=== PATIENT | male | born 1985 | race Caucasian/White ===

== ENCOUNTER 2018-12-17 17:42 | Emergency (ER) | payer MEDICAID, SELFPAY ==
[2018-12-17 17:43] VITALS: BP 142/89; PULSE 85; RESP 16; TEMP 36.3; O2SAT 97; BMI 22.9
[2018-12-17 17:45] VITALS: TEMP 36.3
--- NOTE | 2018-12-17 17:58 | ED.VISSUMM ---
- ER Visit Summary Date of Service: 12/17/18 Chief Complaint: Skin rash History of Present Illness: The patient is a 33 M presenting secondary to a skin rash. Patient reports that he had a pimple that came up over the weekend that he tried to pop twice but since then it has gotten much larger and has a burning type sensation. He denies any constitutional symptoms. Physical Examination: Physical exam unremarkable except for facial exam that shows a 2 cm area of induration with a overlying yellow scab. No evidence of streaking. Patient has a very small area of induration and erythema just to the right of the patient's nose. Test Results: None indicated Emergency Department Course and Treatment: Patient presented with localized areas of facial cellulitis. Patient will be placed on Bactroban and Doxy. Disposition: Discharge Impression: 1. Facial cellulitis This note was generated with [employer] dictation software. It may contain incorrect words, spelling, and punctuation that were not noted in review of the chart prior to signing ED Disposition - Plan for ED Patient: Disposition: Home or Assisted Living Diagnosis: Facial cellulitis Instructions: ED Cellulitis Facial Prescriptions: Doxycycline 100 mg PO BID #14 cap Mupirocin [Bactroban] 1 applic TOPICAL TID #1 tube Referrals: [facility] Doctor,Out of [Primary Care Provider] - 3-5 Days if not improving
--- NOTE | 2018-12-17 18:01 | ED.DCSUM_ITS ---
- ER Visit Summary Date of Service: 12/17/18 Chief Complaint: Skin rash History of Present Illness: The patient is a 33 M presenting secondary to a skin rash. Patient reports that he had a pimple that came up over the weekend that he tried to pop twice but since then it has gotten much larger and has a burning type sensation. He denies any constitutional symptoms. Physical Examination: Physical exam unremarkable except for facial exam that shows a 2 cm area of induration with a overlying yellow scab. No evidence of streaking. Patient has a very small area of induration and erythema just to the right of the patient's nose. Test Results: None indicated Emergency Department Course and Treatment: Patient presented with localized areas of facial cellulitis. Patient will be placed on Bactroban and Doxy. Disposition: Discharge Impression: 1. Facial cellulitis This note was generated with [employer] dictation software. It may contain incorrect words, spelling, and punctuation that were not noted in review of the chart prior to signing ED Disposition - Plan for ED Patient: Disposition: Home or Assisted Living Diagnosis: Facial cellulitis Instructions: ED Cellulitis Facial Prescriptions: Doxycycline 100 mg PO BID #14 cap Mupirocin [Bactroban] 1 applic TOPICAL TID #1 tube Referrals: [facility] Doctor,Out of [Primary Care Provider] - 3-5 Days if not improving
[2018-12-17 18:18] VITALS: PULSE 85; RESP 16; O2SAT 97
== END 2018-12-17 18:18 | disposition home or self-care (01) ==
PROVIDERS: Emergency Provider Emergency Medicine; Family Provider Registered Nurse; PCP Registered Nurse
DX: L03.211 Cellulitis of face (principal); Z72.0 Tobacco use
CPT/HCPCS: 99284

== ENCOUNTER 2019-03-26 09:15 | Emergency (ER) | payer MEDICAID, SELFPAY ==
[2019-03-26 09:16] VITALS: BP 121/68; PULSE 79; RESP 12; TEMP 36.6; O2SAT 98; BMI 25.2
--- NOTE | 2019-03-26 10:24 | RAD_ITS ---
STUDY: X-RAY - RIGHT KNEE REASON FOR EXAM: Male, 34 years old. Right knee pain. No known injury. TECHNIQUE: 4 view(s) of the knee. COMPARISON: None. FINDINGS: Normal visualized distal femur. Normal visualized proximal tibia and fibula. Normal proximal tibiofibular articulation. Normal medial femorotibial compartment. Normal lateral femorotibial compartment. Normal patellofemoral articulation. Small joint effusion. RAD/Knee 4 or More Views IMPRESSION: Small joint effusion. Electronically Signed: Juliocesar Nickerson, at 10:59 EDT , Service support ,
[2019-03-26] MEDS: Ibuprofen 600 MG Tablet PO (10:27)
--- NOTE | 2019-03-26 10:44 | ED.DCSUM_ITS ---
- ER Visit Summary Date of Service: 03/26/19 Chief Complaint: Right knee pain History of Present Illness: The patient is a 34 M who presents with right knee pain for the past 2 weeks. Patient states the pain is worse with movement and with weightbearing. Patient denies any specific trauma or injury. Patient does admit to some tingling around the right knee. Patient denies any weakness. Patient denies any clicking or popping sensation. Patient states he has been working a lot recently which has exacerbated his pain. Physical Examination: Vital signs are stable. Patient is afebrile. Patient is in no acute distress. Musculoskeletal exam reveals diffuse tenderness around t he right knee. There is no effusion. There is no ecchymosis noted. There is no bony crepitance or step-off. Range of motion was limited in all motions of the right knee secondary to pain. There is no laxity appreciated. Varus and valgus stress test were negative. Lockman's test was negative. Patient was guarding on examination however. Sensation was intact to light touch in all dermatomes of the lower extremity. There is no calf tenderness noted. There is good posterior tibial pulse. Test Results: X-rays of the right knee were obtained. There is a mild effusion. There is no acute fracture or loose body noted. Emergency Department Course and Treatment: Patient was given a dose of ibuprofen here. Patient was instructed to ice and elevate the right knee. Patient was instructed to follow-up with his primary care physician in 5 to 7 days. Patient was given a prescription for ibuprofen. Patient understood and was agreeable with the plan. All questions were answered. Disposition: Discharge home Impression: Right knee pain This note was generated with [employer] dictation software. It may contain incorrect words, spelling, and punctuation that were not noted in review of the chart prior to signing ED Disposition - Plan for ED Patient: Disposition: Home or Assisted Living Instructions: ED Knee Pain [facility] Prescriptions: Ibuprofen 800 mg PO Q8H PRN PRN #20 tab PRN Reason: Pain Referrals: Dulce Maria May NP-C [Primary Care Provider] - 5-7 Days
== END 2019-03-26 11:35 | disposition home or self-care (01) ==
PROVIDERS: Emergency Provider Emergency Medicine; Family Provider Registered Nurse; PCP Registered Nurse
DX: M25.561 Pain in right knee (principal); M25.461 Effusion, right knee; Z72.0 Tobacco use
CPT/HCPCS: 73564; 99283

== ENCOUNTER 2019-07-12 09:25 | Emergency (ER) | payer SELFPAY ==
[2019-07-12 09:26] VITALS: BP 144/78; PULSE 72; RESP 14; TEMP 36.2; O2SAT 96; BMI 26.8
[2019-07-12 10:08] LABS: Absolute Neutrophil Count 3.1 X10^3/uL (2.0-7.7); Basophil# 0.02 X10^3/uL; Basophil% 0.4 % (0-1); Hematocrit 42.7 % (40-54); Hemoglobin 14.2 g/dL (13.0-16.5); Lymphocyte % 25.6 % (19-41); Mean Corp Hgb Conc 33.3 g/dL (32-36); Mean Corpuscular Hgb 30.5 pg (27.0-32.0); Mean Corpuscular Volume 91.6 fL (80-94); Monocyte# 0.55 X10^3/uL; Monocyte% 10.8 % (0-10); NRBC Flagged by Analyzer 0 % (0-5); Platelet Count 207 K/mm3 (150-450); RBC Distribution Width CV 12.7 % (11.6-14.6); RBC Distribution Width SD 42.5 fl (35.1-43.9); Red Blood Count 4.66 M/mm3 (4.6-6.2); White Blood Count 5.1 K/mm3 (4.4-11.0)
[2019-07-12] MEDS: 0.9% Normal Saline 1,000 ML 1000 ML IV (10:13)
[2019-07-12] MEDS: Ondansetron 4 MG/2 ML Vial IV (10:13)
--- NOTE | 2019-07-12 10:21 | ED.VIS.GI ---
History of Present Illness <Ying Umana - Last Filed: 07/12/19 10:48> Informant: Patient - Abdominal Pain/Flank Pain Onset: Yesterday Context: Gradual Onset Timing: Intermittent Quality: Cramping Location: Diffuse Current Severity: Moderate Maximum Severity: Moderate Worsened by: Food Relieved by: Remaining Still - Nausea/Vomiting/Emesis GI Symptom: Nausea. Negative for: Vomiting Onset: Yesterday Quality: Negative for: Nonbilious, Blood streaks, Coffee ground, Hematemesis - Diarrhea/Melena/Hematochezia GI Symptom: Diarrhea Onset: Yesterday Stool Quality: Loose, Watery Severity: Moderate Associated Symptoms: Negative for: Dysuria, Frequency, Hematuria, Urgency Narrative: 34 year old male presents with nausea, abdominal pain and diarrhea. Symptoms began yesterday. Pain is only mild to moderate intermittent and cramping he has had several episodes of loose watery diarrhea. No melena or hematochezia. He has been nauseated but has not vomited. No fevers. No difficulty urinating. He denies history of abdominal surgery. He denies history of IBS. He denies any history of inflammatory bowel disease Prior similar symptoms: No Recent Illness/Hospitalization: No <SandyFred - Last Filed: 07/12/19 11:11> Chief Complaint: Nausea/Vomiting/Diarrhea Past Medical History <Ying Umana - Last Filed: 07/12/19 10:48> Prior records reviewed: Yes Past Medical History: None Surgical History: no surgical history Lives: With Family Smoking Status: Current some day smoker <Fred Delgado - Last Filed: 07/12/19 11:11> - Allergies and Home Meds Allergies/Adverse Reactions: Allergies No Known Allergies Allergy (Verified 07/12/19 09:26) Primary Care Physician: Dulce Maria May NP-C [Primary Care Provider] - Review of Systems All systems negative except as indicated General: Denies: Chills, Fever Cardiovascular: Denies: Chest pain Respiratory: Denies: Dyspnea Gastrointestinal: Reports: Abdominal pain, Nausea, Diarrhea. Denies: Vomiting, Constipation <Fred Delgado - Last Filed: 07/12/19 11:11> Physical Exam Vital Signs/Narrative: Vital Signs Temp Pulse Resp BP Pulse Ox 08/25/19 09:26 97.1 F L 72 14 144/78 H 96 <LyndsayJamalsierra - Last Filed: 07/12/19 10:48> Vital Signs/Narrative: Vital Signs Temp Pulse Resp BP Pulse Ox 07/12/19 09:26 97.1 F L 72 14 144/78 H 96 Inital Vital Signs reviewed: Yes General: Well nourished, Well developed, No Acute Distress Head: Normocephalic, Atraumatic Eyes: Perrl, EOMI ENT: Moist mucous membranes Neck: Supple, Nontender Cardiovascular: Regular rate, Regular rhythm Respiratory: No distress, CTA bilaterally, Chest nontender Abdomen: Soft, Nontender, Nondistended, Normal bowel sounds, No masses Back: Nontender Extremities: Nontender, No edema Skin: Normal color, No rash Neurological: Alert, Oriented x3 <Fred Delgado - Last Filed: 07/12/19 11:11> Diagnostic/Tx/Re-eval - Medical Decision Making Vomiting diarrhea for a few days patient seen with Fred His vital signs are unremarkable the abdomen soft nontender the rest exam is unremarkable see the chart for full details treatment plan <LyndsayHajackie - Last Filed: 07/12/19 10:48> - Medical Decision Making Patient was given fluids and Zofran. His laboratory work was unremarkable. After finishing a liter of fluid he feels much improved. His repeat abdominal exam is soft and nontender. He is able to tolerate by mouth. He will be discharged home with a prescription for Zofran as well as Bentyl. We discussed continue supportive care at home and close follow-up with his family physician. He will return here for worsening symptoms which we discussed. He was discharged <Fred Delgado - Last Filed: 07/12/19 11:11> ED Disposition <Ying Umana - Last Filed: 07/12/19 10:48> <Fred Delgado - Last Filed: 07/12/19 11:11> - Plan for ED Patient: Disposition: Home or Assisted Living Diagnosis: Nausea without vomiting, Diarrhea Instructions: GASTROENTERITIS, Viral (6y-Adult) Prescriptions: Dicyclomine HCl [Bentyl] 20 mg PO TIDAC #20 cap Prescription Printed Ondansetron [Zofran Odt] 4 mg PO Q8H PRN PRN #10 tab PRN Reason: Nausea Prescription Printed Referrals: Dulce Maria May, [place]-[facility] [Primary Care Provider] -
[2019-07-12 10:26] LABS: ALB/GLOB Ratio 0.9 RATIO (0.9-2.4); AST(SGOT) 22 U/L (15-37); Alanine Aminotransfer ALT/SGPT 34 U/L (16-61); Albumin, Serum 3.5 g/dL (3.2-5.0); Alkaline Phosphatase 94 U/L (45-117); Anion Gap 5 (5-15); BUN 16 mg/dL (7-18); BUN/Creat Ratio 14.5 RATIO (10-20); Calcium,Total 8.4 mg/dL (8.5-10.1); Chloride 107 mmol/L (98-107); EST Glomerular Filtration Rate 82 mL/min (>60); Est Glom Filt Rate - Afr Amer 100 mL/min (>60); Estimated Creatinine Clearance 105.82 ml/min; Globulin 3.7 g/dL (2.2-4.2); Glucose 106 mg/dL (74-106); Lipase 85 U/L (73-393); Potassium 3.8 mmol/L (3.5-5.1); Protein, Total 7.2 g/dL (6.4-8.2); Sodium Level 141 mmol/L (136-145)
[2019-07-12] MEDS: Dicyclomine 10 MG Capsule 20 MG PO (11:20)
[2019-07-12 11:23] VITALS: BP 139/77; PULSE 72; RESP 16; O2SAT 97
== END 2019-07-12 11:25 | disposition home or self-care (01) ==
PROVIDERS: Emergency Provider Physician Assistant Medical; Family Provider Registered Nurse; PCP Registered Nurse
DX: R10.9 Unspecified abdominal pain (principal); R19.7 Diarrhea, unspecified; R11.0 Nausea; F17.200 Nicotine dependence, unspecified, uncomplicated
CPT/HCPCS: 80053; 83690; 85025; 96361; 96374; 99284; J7030; A4216; J2405

== ENCOUNTER 2019-08-18 17:47 | Emergency (ER) | payer SELFPAY ==
[2019-08-18 17:48] VITALS: BP 144/91; PULSE 72; RESP 14; TEMP 36.7; O2SAT 97; BMI 27.4
--- NOTE | 2019-08-18 18:17 | EKG12_ITS ---
Test Reason : NECK PAIN Blood Pressure : / mmHG Vent. Rate : 069 BPM Atrial Rate : 069 BPM P-R Int : 174 ms QRS Dur : 106 ms QT Int : 382 ms P-R-T Axes : 065 030 036 degrees QTc Int : 409 ms Normal sinus rhythm Normal ECG Confirmed by NOLAN CLEARY ([id number]), sound editor ALANNA THOMAS ([id number]) on 08/24/2019 12:13:44 PM Referred By: CORI Confirmed By:NOLAN CLEARY
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
--- NOTE | 2019-08-18 18:30 | RAD_ITS ---
STUDY: X-RAY CHEST REASON FOR EXAM: Male, 34 years old. Pain TECHNIQUE: Frontal and lateral views COMPARISON: November 03, 2014 FINDINGS: The lungs are clear and expanded. There is no demonstrated pleural abnormality. Normal size heart. Normal mediastinum and laura. Normal visualized pulmonary arteries. Normal visualized aortic arch and descending thoracic aorta. Normal visualized thoracic spine. Normal visualized ribs, clavicles, and shoulders. There is no demonstrated abnormality of the visualized soft tissue structures of the upper abdomen. RAD/Chest PA and Lateral IMPRESSION: Normal x-ray examination of the chest. Electronically Signed: Brock Rodriguez DO at 18:41 EDT Tel [phone], Service support ,
[2019-08-18] MEDS: cycloBENZAPRine HCl 10 MG Tablet PO (19:21)
[2019-08-18] MEDS: Naproxen 500 MG Tablet PO (19:21)
[2019-08-18 19:22] VITALS: BP 135/78; PULSE 82; RESP 17; O2SAT 97
== END 2019-08-18 19:23 | disposition home or self-care (01) ==
PROVIDERS: Emergency Provider Emergency Medicine; Family Provider Registered Nurse; PCP Registered Nurse
DX: S43.402A Unspecified sprain of left shoulder joint, initial encounter (principal); X58.XXXA Exposure to other specified factors, initial encounter; Y93.89 Activity, other specified; F17.200 Nicotine dependence, unspecified, uncomplicated
CPT/HCPCS: 71046; 93005; 99282

== ENCOUNTER 2019-10-09 05:34 | Emergency (ER) | payer SELFPAY ==
[2019-10-09 05:35] VITALS: BP 152/93; PULSE 67; RESP 18; TEMP 36.7; O2SAT 95; BMI 27.0
--- NOTE | 2019-10-09 05:46 | ED.VIS.GEN ---
History of Present Illness Chief Complaint: Cough Informant: Patient Narrative: Patient reports cough and runny nose for 1 day. Nonproductive. Denies any other symptoms. No sore throat. Positive sick contacts. No home treatment. Current severity is mild. Past Medical History - Allergies and Home Meds Allergies/Adverse Reactions: Allergies No Known Allergies Allergy (Verified 10/09/19 05:38) Primary Care Physician: Dulce Maria May NP-C [Primary Care Provider] - Prior records reviewed: Yes Past Medical History: None Surgical History: no surgical history Lives: Alone Smoking Status: Current every day smoker Alcohol: None Drugs: None Review of Systems General: Denies: Chills, Fever, Sweats Eyes: Denies: Visual changes - bilaterally, Diplopia ENT: Reports: Rhinorrhea. Denies: Sore throat Cardiovascular: Denies: Chest pain, Palpitations Respiratory: Reports: Cough. Denies: Dyspnea, Dyspnea on exertion Gastrointestinal: Denies: Abdominal pain, Nausea, Vomiting, Diarrhea, Melena, Hematochezia Genitourinary: Denies: Dysuria, Hematuria, Frequency Musculoskeletal: Denies: Back pain, Extremity Pain Skin: Denies: Rash, Wounds Neurological: Denies: Headache, Weakness, Numbness Physical Exam Vital Signs/Narrative: Vital Signs Temp Pulse Resp BP Pulse Ox 10/09/19 05:35 98.0 F 671 H 8 L 152/93 H 95 General: Well nourished, Well developed, No Acute Distress Head: Normocephalic, Atraumatic Eyes: Perrl, EOMI ENT: Moist mucous membranes, No rhinorrhea Neck: Supple, Nontender Cardiovascular: Regular rate, Regular rhythm, No murmurs Respiratory: No distress, CTA bilaterally, Chest nontender Abdomen: Soft, Nontender, Nondistended, Normal bowel sounds Back: Nontender, Normal Inspection Extremities: Nontender, No edema Skin: Normal color, No rash Neurological: Alert, Oriented x3, Cranial nerves II-XII grossly intact, Normal Strength, Normal Sensation Psychological: Normal affect, Normal Mood Diagnostic/Tx/Re-eval - Medical Decision Making This time the patient has upper respiratory infection. He will use [id number]'s and Tessalon Perles and follow-up as an outpatient. Encouraged to stop smoking ED Disposition - Plan for ED Patient: Disposition: Home or Assisted Living Diagnosis: Upper respiratory infection Instructions: Adult Self-Care for Colds and Flu Prescriptions: Benzonatate [Tessalon Perle] 100 mg PO 4X/DAY PRN PRN #28 cap PRN Reason: Cough Prescription Printed Referrals: Dulce Maria May NP-C [Primary Care Provider] - Additional Instructions: Use Mucinex for cough as well as liquid honey for cough, Sudafed for nasal congestion.
[2019-10-09 05:58] VITALS: BP 152/93; PULSE 67; RESP 18; O2SAT 97
== END 2019-10-09 05:59 | disposition home or self-care (01) ==
LOC: ED 05:52
PROVIDERS: Emergency Provider Emergency Medicine; Family Provider Registered Nurse; PCP Registered Nurse
DX: J06.9 Acute upper respiratory infection, unspecified (principal); F17.200 Nicotine dependence, unspecified, uncomplicated
CPT/HCPCS: 99282

== ENCOUNTER 2019-11-25 23:56 | Emergency (ER) | payer SELFPAY ==
[2019-11-25 23:57] VITALS: BP 146/104; PULSE 100; RESP 17; TEMP 36.7; O2SAT 94; BMI 25.9
--- NOTE | 2019-11-26 00:06 | ED.VIS.GEN ---
History of Present Illness Chief Complaint: Cough Narrative: Patient is a 34-year-old male who presents with a cough. This began about 10 hours ago. Tonight he could not quit coughing so he presented here for evaluation. His cough is productive. He also complains of some rhinorrhea. He is not short of breath. No pain. No fevers or vomiting. He is a smoker. Past Medical History - Allergies and Home Meds Allergies/Adverse Reactions: Allergies No Known Allergies Allergy (Verified 11/25/19 23:56) Primary Care Physician: Dulce Maria May NP-C [Primary Care Provider] - Past Medical History: None Surgical History: no surgical history Smoking Status: Current every day smoker Review of Systems All systems negative except as indicated General: Denies: Fever ENT: Reports: Rhinorrhea Cardiovascular: Denies: Chest pain Respiratory: Reports: Cough, Sputum. Denies: Dyspnea Gastrointestinal: Denies: Abdominal pain, Vomiting, Diarrhea Musculoskeletal: Denies: Myalgias, Arthralgias Skin: Denies: Rash Neurological: Denies: Headache Physical Exam Vital Signs/Narrative: Vital Signs Temp Pulse Resp BP Pulse Ox 11/25/19 23:57 98.0 F 100 17 146/104 H 94 Inital Vital Signs reviewed: Yes General: Well nourished, No Acute Distress Head: Normocephalic, Atraumatic Eyes: EOMI ENT: Moist mucous membranes Neck: Supple Cardiovascular: Regular rate, Regular rhythm Respiratory: CTA bilaterally, - - Lungs are clear without rales rhonchi or wheezes, he is not dyspneic or in any respiratory distress but does have a persistent cough. Negative for: Rales, Rhonchi, Wheezing Abdomen: Soft Skin: Normal color Neurological: Alert Psychological: Normal affect Diagnostic/Tx/Re-eval - Medical Decision Making Patient was given a DuoNeb aerosol. This is most likely related to bronchitis. Patient advised on supportive care and discharged home. ED Disposition - Plan for ED Patient: Disposition: Home or Assisted Living Diagnosis: Bronchitis Instructions: BRONCHITIS, No Antibiotic (Adult) Referrals: Dulce Maria May NP-C [Primary Care Provider] -
[2019-11-26 00:14] VITALS: PULSE 98; RESP 18
[2019-11-26] MEDS: Ipratropium/Albuterol Sulfate 3 ML AMPUL.NEB INHALATION (00:14)
[2019-11-26 00:30] VITALS: O2SAT 98
[2019-11-26 00:42] VITALS: PULSE 104; RESP 22; O2SAT 98
--- NOTE | 2019-11-26 00:43 | ED.RN ---
THIS NURSE REVIEWED D/C INSTRUCTIONS WITH PT. PT VERBALIZED UNDERSTANDING OF INSTRUCTIONS. PT DENIES FURTHER NEEDS OR QUESTIONS AT THIS TIME. PT AMBULATES FROM ROOM ON OWN WITHOUT ASSISTANCE FROM STAFF
== END 2019-11-26 00:46 | disposition home or self-care (01) ==
LOC: ED 11-26 00:34
PROVIDERS: Emergency Provider Emergency Medicine; Family Provider Registered Nurse; PCP Registered Nurse
DX: J40 Bronchitis, not specified as acute or chronic (principal)
CPT/HCPCS: 94640; 99282

== ENCOUNTER 2020-05-10 01:08 | Emergency (ER) | payer SELFPAY ==
[2020-05-10 01:09] VITALS: BP 161/116; PULSE 80; RESP 16; TEMP 35.9; O2SAT 98; BMI 22.4
[2020-05-10 01:16] VITALS: BP 154/97
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
[2020-05-10 01:50] LABS: Absolute Lymphocyte Count 1.36 X10^3/uL (0.83-4.51); Absolute Neutrophil Count 4.3 X10^3/uL (2.0-7.7); Basophil# 0.02 X10^3/uL; Basophil% 0.3 % (0-1); Eosinophil# 0.03 X10^3/uL; Eosinophils% 0.5 % (0-5); Hematocrit 43.9 % (40-54); Hemoglobin 14.2 g/dL (13.0-16.5); Lymphocyte # 1.36 X10^3/ul (4.0); Lymphocyte % 21.5 % (19-41); Mean Corp Hgb Conc 32.3 g/dL (32-36); Mean Corpuscular Hgb 29.2 pg (27.0-32.0); Mean Corpuscular Volume 90.3 fL (80-94); Mean Platelet Vol. 9.7 fl (6.2-12.0); Monocyte# 0.63 X10^3/uL; NRBC Flagged by Analyzer 0 % (0-5); Neutrophil # 4.27 X10^3/uL (2.7-7.7); Neutrophil % 67.5 % (47-70); Platelet Count 240 K/mm3 (150-450); RBC Distribution Width CV 12.7 % (11.6-14.6); RBC Distribution Width SD 41.9 fl (35.1-43.9); Red Blood Count 4.86 M/mm3 (4.6-6.2); White Blood Count 6.3 K/mm3 (4.4-11.0)
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
[2020-05-10 02:03] LABS: Amphetamine Urine VISTA POSITIVE (<1000 ng/mL); Barbiturate Urine VISTA NEGATIVE (< 200 ng/mL); Benzodiazepine Urine VISTA NEGATIVE (< 200 ng/mL); Cocaine Urine VISTA NEGATIVE (< 300 ng/mL); Ecstacy Urine VISTA POSITIVE (< 500 ng/mL); Methadone Urine VISTA NEGATIVE (< 300 ng/mL); PCP Urine VISTA NEGATIVE (< 25 ng/mL); THC Urine VISTA POSITIVE (< 50 ng/mL); Vista UDS pH Range 6
[2020-05-10 02:13] LABS: Anion Gap 6 (5-15); BUN 14 mg/dL (7-18); BUN/Creat Ratio 13.9 RATIO (10-20); Calcium,Total 9.1 mg/dL (8.5-10.1); Chloride 109 mmol/L (98-107); Creatinine, Serum 1.01 mg/dL (0.70-1.30); EST Glomerular Filtration Rate 90 mL/min (>60); Est Glom Filt Rate - Afr Amer 109 mL/min (>60); Estimated Creatinine Clearance 107.12 ml/min; Glucose 101 mg/dL (74-106); Potassium 3.6 mmol/L (3.5-5.1); Sodium Level 141 mmol/L (136-145)
[2020-05-10 02:18] LABS: Alcohol, Blood (Medical)-Serum < 3.0 mg/dL
[2020-05-10 03:12] VITALS: RESP 16
[2020-05-10 04:23] VITALS: RESP 14
--- NOTE | 2020-05-10 05:01 | ED.DEP ---
ED Disposition - Plan for ED Patient: Instructions: ED Depression Referrals: Dulce Maria May, [place] [Primary Care Provider] - Counseling,Center [GROUP OF PHYSICIANS] -
[2020-05-10 05:13] VITALS: PULSE 80; RESP 16; O2SAT 99
== END 2020-05-10 05:14 | disposition home or self-care (01) ==
PROVIDERS: Emergency Provider Emergency Medicine; PCP Registered Nurse
DX: F32.9 Major depressive disorder, single episode, unspecified (principal); S60.221A Contusion of right hand, initial encounter; W22.09XA Striking against other stationary object, initial encounter; Y93.9 Activity, unspecified; Y92.9 Unspecified place or not applicable; Y99.9 Unspecified external cause status; Z72.0 Tobacco use
CPT/HCPCS: 73130; 80048; 80307; 80320; 85025; 99282; G0480

== ENCOUNTER 2020-08-25 10:47 | Emergency (ER) | payer SELFPAY ==
[2020-08-25 10:48] VITALS: BP 136/92; PULSE 92; RESP 16; TEMP 36.3; O2SAT 99; BMI 21.9
[2020-08-25 11:55] LABS: Absolute Lymphocyte Count 1.36 X10^3/uL (0.83-4.51); Absolute Neutrophil Count 2.8 X10^3/uL (2.0-7.7); Basophil# 0.03 X10^3/uL; Basophil% 0.6 % (0-1); Eosinophil# 0.12 X10^3/uL; Eosinophils% 2.5 % (0-5); Hematocrit 46.7 % (40-54); Hemoglobin 14.6 g/dL (13.0-16.5); Lymphocyte # 1.36 X10^3/ul (4.0); Lymphocyte % 28.4 % (19-41); Mean Corp Hgb Conc 31.3 g/dL (32-36); Mean Corpuscular Hgb 28.8 pg (27.0-32.0); Mean Corpuscular Volume 92.1 fL (80-94); Mean Platelet Vol. 9.6 fl (6.2-12.0); Monocyte# 0.48 X10^3/uL; NRBC Flagged by Analyzer 0 % (0-5); Neutrophil % 58.5 % (47-70); Platelet Count 304 K/mm3 (150-450); RBC Distribution Width CV 12.9 % (11.6-14.6); RBC Distribution Width SD 43.8 fl (35.1-43.9); Red Blood Count 5.07 M/mm3 (4.6-6.2); White Blood Count 4.8 K/mm3 (4.4-11.0)
[2020-08-25 12:08] LABS: Anion Gap 3 (5-15); BUN 15 mg/dL (7-18); BUN/Creat Ratio 12.8 RATIO (10-20); Calcium,Total 9.1 mg/dL (8.5-10.1); Chloride 108 mmol/L (98-107); Creatinine, Serum 1.17 mg/dL (0.70-1.30); EST Glomerular Filtration Rate 76 mL/min (>60); Est Glom Filt Rate - Afr Amer 92 mL/min (>60); Estimated Creatinine Clearance 90.69 ml/min; Glucose 113 mg/dL (74-106); Potassium 4.1 mmol/L (3.5-5.1); Sodium Level 140 mmol/L (136-145)
--- NOTE | 2020-08-25 12:08 | CT_ITS ---
STUDY: CT BRAIN WITHOUT CONTRAST REASON FOR EXAM: Male, 35 years old. DIZZINESS, DUMONT, NEAR SYNCOPE RADIATION DOSAGE (If Supplied By Facility): CTDIvol = ( 60.81 ) mGy, DLP = ( 998.67 ) mGycm TECHNIQUE: Transaxial CT imaging of the brain was performed without administration of intravenous contrast material. Individualized dose optimization techniques were used for this CT. COMPARISON: No relevant priors. FINDINGS: Normal soft tissue structures. Normal calvarium. Normal size ventricles and extra-axial spaces for the patient''s age. Normal white matter tracts of the cerebral hemispheres. Normal basal ganglia and thalami. Normal brainstem. Normal cerebellum. There is no intracranial hemorrhage. There are no findings of an acute ischemic infarction. Normal visualized paranasal sinuses. CT/Brain/Head without Contrast IMPRESSION: Normal unenhanced CT scan of the brain. Electronically Signed: Lazaro Mullins, at 12:34 EDT Tel , Service support ,
--- NOTE | 2020-08-25 12:09 | ED.DCSUM_ITS ---
History of Present Illness Chief Complaint: General Illness Informant: Patient Narrative: 35-year-old male presents with vertiginous dizziness. He states this is been intermittent. He describes it as starting in the morning when he first turns his head. He does have it periodically throughout the day. It is associated with a mild headache. He states he has a history of migraine but currently only has a mild headache. Has had CT imaging of the brain in the past but states he has had headaches for the past couple of weeks on and off. No blurry vision or double vision. He can walk with a stable gait. Nausea without vomiting. He denies any cough, cold, fever symptoms. He has no abdominal pain, urinary complaints, change in bowel habits. He states that he is been checking his blood sugar with his sisters friend's glucometer and states that he had a couple readings of about 79. He states he came in today because his family has been worried about him. Past Medical History - Allergies and Home Meds Allergies/Adverse Reactions: Allergies No Known Allergies Allergy (Verified 05/10/20 01:14) Primary Care Physician: Dulce Maria May PRINTING SUPPLIES SALES REPRESENTATIVE, PRINTING SUPPLIES SALES REPRESENTATIVE-C [Primary Care Provider] - Past Medical History: - - Migraine headache Surgical History: no surgical history Lives: Spouse/ Significant Other Smoking Status: Current every day smoker Alcohol: None Drugs: None Review of Systems General: Reports: - - Remittent vertiginous dizziness. Denies: Chills, Fever, Sweats Eyes: Denies: Visual changes - bilaterally, Diplopia ENT: Denies: Rhinorrhea, Sore throat Cardiovascular: Denies: Chest pain, Palpitations Respiratory: Denies: Dyspnea, Cough, Dyspnea on exertion Gastrointestinal: Reports: Nausea. Denies: Abdominal pain, Vomiting, Diarrhea, Melena, Hematochezia Musculoskeletal: Denies: Back pain, Extremity Pain Skin: Denies: Rash, Wounds Neurological: Reports: Headache. Denies: Parasthesia, Numbness Psych: Denies: Depression, Anxiety, Suicidal thoughts, Suicidal ideations Physical Exam Vital Signs/Narrative: Vital Signs Temp Pulse Resp BP Pulse Ox 08/25/20 10:48 97.4 F L 92 16 136/92 H 99 Inital Vital Signs reviewed: Yes General: Well nourished, No Acute Distress Eyes: Perrl, EOMI, - - Nystagmus and dizziness with modified [place]-Hallpike ENT: Moist mucous membranes, No rhinorrhea Cardiovascular: Regular rate, Regular rhythm Respiratory: No distress, CTA bilaterally Abdomen: Soft, Nontender, Nondistended Extremities: Nontender, No edema Skin: Normal color, No rash Neurological: Alert, Oriented x3 Psychological: Normal affect, Normal Mood Diagnostic/Tx/Re-eval Clinical Impression(s) from Imaging Studies Brain CT 08/25/20 12:08 IMPRESSION: Normal unenhanced CT scan of the brain. Electronically Signed: Lazaro Mullins, at 12:34 EDT Tel , Service support , Laboratory Data 08/25/20 08/25/20 11:20 11:20 WBC 4.8 RBC 5.07 Hgb 14.6 Hct 46.7 MCV 92.1 MCH 28.8 MCHC 31.3 L RDW Std Deviation 43.8 RDW Coeff of Adriane 12.9 Plt Count 304 MPV 9.6 Immature Gran % (Auto) 0.000 Neut % (Auto) 58.5 Lymph % (Auto) 28.4 [place] % (Auto) 10.0 Eos % (Auto) 2.5 Baso % (Auto) 0.6 Absolute Neuts (auto) 2.8 Absolute Lymphs (auto) 1.36 Nucleated RBC % 0 Sodium 140 Potassium 4.1 Chloride 108 H Carbon Dioxide 29.0 Anion Gap 3 L BUN 15 Creatinine 1.17 Estim Creat Clear Calc 90.69 Est GFR (MDRD) Af Amer 92 Est GFR (MDRD) Non-Af 76 BUN/Creatinine Ratio 12.8 Glucose 113 H Calcium 9.1 - Medical Decision Making 35-year-old male presenting with vertiginous dizziness as well as mild headache. I am able to reproduce his dizziness with modified [place]-Hallpike. Given his prolonged headaches obtain another head CT which is normal. Blood work was also normal. Patient feels improved at this time after Phenergan and meclizine. He will be discharged home with a prescription for meclizine. He is to follow-up outpatient with his PCP. Patient stable for discharge. Impression: 1. Headache 2. Benign positional vertigo ED Disposition - Plan for ED Patient: Disposition: Home or Assisted Living Instructions: ED BPV Vertigo Referrals: Dulce Maria May NP, PR[employer] SALES REPRESENTATIVE-C [Primary Care Provider] -
[2020-08-25] MEDS: proMETHazine 25 MG/ML Syringe 12.5 MG IV (12:26)
[2020-08-25 13:25] VITALS: BP 124/78; PULSE 84; RESP 18; O2SAT 99
[2020-08-25] MEDS: Meclizine HCl 25 MG Tablet PO (13:25)
== END 2020-08-25 13:26 | disposition home or self-care (01) ==
PROVIDERS: Emergency Provider Student in an Organized Health Care Education/Training Program; PCP Registered Nurse
DX: H81.10 Benign paroxysmal vertigo, unspecified ear (principal); R51.9 Headache, unspecified; F17.200 Nicotine dependence, unspecified, uncomplicated
CPT/HCPCS: 70450; 80048; 85025; 96374; 99283; A4216

== ENCOUNTER 2020-08-25 18:22 | Emergency (ER) | payer SELFPAY ==
[2020-08-25 10:48] VITALS: BMI 21.9
[2020-08-25 18:23] VITALS: BP 144/97; PULSE 105; RESP 17; TEMP 36.6; O2SAT 99; BMI 21.7
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
[2020-08-25 19:36] LABS: AST(SGOT) 25 U/L (15-37); Alanine Aminotransfer ALT/SGPT 29 U/L (16-61); Alkaline Phosphatase 90 U/L (45-117); Bilirubin, Direct 0.16 mg/dL (0.00-0.30); CPK Total, Creatine Kinase 259 U/L (39-308); Globulin 3.5 g/dL (2.2-4.2); Protein, Total 7.5 g/dL (6.4-8.2)
[2020-08-25 19:40] LABS: Amphetamine Urine VISTA POSITIVE (<1000 ng/mL); Barbiturate Urine VISTA NEGATIVE (< 200 ng/mL); Benzodiazepine Urine VISTA NEGATIVE (< 200 ng/mL); Cocaine Urine VISTA NEGATIVE (< 300 ng/mL); Ecstacy Urine VISTA NEGATIVE (< 500 ng/mL); Methadone Urine VISTA NEGATIVE (< 300 ng/mL); PCP Urine VISTA NEGATIVE (< 25 ng/mL); THC Urine VISTA POSITIVE (< 50 ng/mL); Vista UDS pH Range 6
[2020-08-25 19:59] LABS: Alcohol, Blood (Medical)-Serum < 3.0 mg/dL
--- NOTE | 2020-08-25 20:03 | ED.RN ---
Patient came out the nursing station stating his ride is here and he is ready to leave. Dr. Rosario at the bedside talking to the patient. Patient is homeless and has not were to go this is his only chance to leave. Patient has no IV. Pt able to answer all questions and walking under own free will. Patient leaving against medical advice at this time
--- NOTE | 2020-08-26 15:12 | CM.ED ---
Social Work Consult received outside of SW hours for outpatient counseling services. Telephone call to patient, no answer. no voicemail. Lydia Hanks MSW, YASH
== END 2020-08-25 20:05 | disposition home or self-care (01) ==
LOC: ED 18:55
PROVIDERS: Emergency Provider Emergency Medicine; PCP Registered Nurse
DX: F32.9 Major depressive disorder, single episode, unspecified (principal); F41.9 Anxiety disorder, unspecified; R42 Dizziness and giddiness; F17.200 Nicotine dependence, unspecified, uncomplicated
CPT/HCPCS: 80076; 80307; 80320; 82550; 99281; G0480

== ENCOUNTER 2021-06-07 16:01 | Emergency (ER) | payer SELFPAY ==
[2021-06-07 16:02] VITALS: BP 147/82; PULSE 100; RESP 16; TEMP 35.8; O2SAT 98; BMI 23.7
--- NOTE | 2021-06-07 16:31 | EDS_ITS ---
HPI History of Present Illness Chief Complaint: Laceration Informant: patient and spouse/S.O. Narrative Narrative: Patient was trying to cut a hose for a washer extension. He accidentally cut through it. He cut the top of his right thigh. He states it is just oozing a bit. No other injury. No numbness tingling or weakness. Last tetanus was probably 7 to 10 years ago. But he is not certain. Pressure makes the bleeding better. Nothing makes it worse. Denies any other injury. PFSH PFSH Home Medications NK 08/25/20 [History Last Taken Unknown] Allergy/AdvReac Type Severity Reaction Status Date / Time No Known Allergies Allergy Verified 06/07/21 16:01 Social History Smoking Status: Current every day smoker tobacco type: cigarettes ROS ROS ED Gastrointestinal Gastrointestinal: Denies nausea or vomiting Integumentary Reports other Details: See history of present illness regarding laceration. Neurologic Neurologic: Denies paresthesias or weakness Hematologic/Lymphatic Hematologic/Lymphatic: Denies easy bleeding or easy bruising EXAM Physical Exam Const Vital Signs: 06/07/21 16:02 06/07/21 18:02 Temperature 96.5 F L Temperature Source Temporal Pulse Rate 100 96 Respiratory Rate 16 17 Blood Pressure 147/82 H Blood Pressure Mean 103 Pulse Ox 98 99 Positive well nourished and well developed General Appearance ED: well developed HEENT normocephalic and atraumatic Resp normal respiratory effort Extremity Extremity Narrative: Right thigh has a 1/2 cm distal laceration on anterior surface. Some mild venous oozing. Neuro Sensorium / Orientation: alert Skin Trauma: laceration MDM MDM MDM Narrative Medical decision making narrative: I discussed risk benefits and options of the patient. We proceeded with suturing. Procedure: Suture laceration: The area around the wound was sterilely prepped and draped. It was scrubbed. It was irrigated with saline. It was anesthetized with a total of 2-1/2 cc of 1% lidocaine with epinephrine. It was sutured with 3 interrupted 4-0 Ethilon sutures. It was closed with good cosmesis and hemostasis. There is occasional oozing. The wound was explored. I think he got a small branch vein from the superior aspect. There is nothing pulsatile. This is just a small superficial vein. It will ooze off and on. Dressing will be applied. We discussed reasons to return. We discussed signs of infection such as redness swelling drainage fevers or odor. Sutures should stay in 10 to 14 days. Discharge Plan Triage Chief Complaint: Laceration ED Provider: Harrison Young Dx/Rx/DC Orders Clinical Impression: Laceration of right thigh Instructions: ED Laceration: All Closures Prescriptions: No Action NK RF: 0 Primary Care Provider: Dulce Maria May NP Referrals: Dulce Maria May [employer], [employer] [Primary Care Provider] - 10-14 Days suture removal Disposition Disposition: Home, Self Care Discharge Date/Time: 06/07/21 18:10
[2021-06-07] MEDS: Diphth,Pertuss(Acell),Tet Vac 0.5 ML Vial IM (17:56)
[2021-06-07] MEDS: Lidocaine 1% (20 ml mdv) 20 ML Vial INFILT (17:57)
[2021-06-07 18:02] VITALS: PULSE 96; RESP 17; O2SAT 99
== END 2021-06-07 18:10 | disposition home or self-care (01) ==
PROVIDERS: Emergency Provider Emergency Medicine; PCP Registered Nurse
DX: S71.111A Laceration without foreign body, right thigh, initial encounter (principal); Z23 Encounter for immunization; W45.8XXA Other foreign body or object entering through skin, initial encounter; Y93.89 Activity, other specified; Y92.9 Unspecified place or not applicable; Y99.9 Unspecified external cause status; F17.210 Nicotine dependence, cigarettes, uncomplicated
CPT/HCPCS: 12001; 90471; 90715; 99284

== ENCOUNTER 2021-12-28 16:43 | Emergency (ER) | payer MEDICAID, SELFPAY ==
[2021-12-28 16:44] VITALS: BP 170/88; PULSE 81; RESP 16; TEMP 35.6; O2SAT 98; BMI 24.0
[2021-12-28 16:46] VITALS: BP 170/88; PULSE 81; RESP 16; TEMP 35.6; O2SAT 98
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
--- NOTE | 2021-12-28 17:15 | RAD_ITS ---
STUDY: X-RAY LEFT FOOT, 3 TOE REASON FOR EXAM: Male, 36 years old. left great toe injury TECHNIQUE: 3 view(s) of the toe were obtained. COMPARISON: None. FINDINGS: Normal visualized metatarsus. Normal metatarsophalangeal (M.T.P) joint. Normal interphalangeal joints. Normal phalanges and interphalangeal joints. There is no demonstrated fracture. The second through fifth metatarsal bones and proximal phalanges are normal. The soft tissue structures are unremarkable. RAD/Toe(s) Min 2 Views IMPRESSION: Normal x-ray of the toe. Electronically Signed: Mike Edward MD at 17:59 EST ,
[2021-12-28 18:02] VITALS: PULSE 78; RESP 17; O2SAT 98
== END 2021-12-28 18:04 | disposition home or self-care (01) ==
LOC: ED 17:12
PROVIDERS: Emergency Provider Emergency Medicine; PCP Registered Nurse; Visit Provider Emergency Medicine
DX: S90.112A Contusion of left great toe without damage to nail, initial encounter (principal); W22.8XXA Striking against or struck by other objects, initial encounter; F17.210 Nicotine dependence, cigarettes, uncomplicated
CPT/HCPCS: 73660; 99282

== ENCOUNTER 2022-02-13 10:49 | Emergency (ER) | payer MEDICAID, SELFPAY ==
[2022-02-13 10:49] VITALS: BP 150/88; PULSE 93; RESP 16; TEMP 36.6; O2SAT 100; BMI 24.2
--- NOTE | 2022-02-13 11:05 | EX.ED.DYSGE1 ---
HPI History of Present Illness Chief Complaint: General Illness Informant: patient Onset/Context/Timing Onset: Yesterday Context: Gradual Onset Timing: Continuous Current Severity: Mild Maximum Severity: Mild Narrative Narrative: 37-year-old male past medical history of substance abuse and depression. States yesterday started having cough sometimes yellowish sputum sore throat but able to swallow and mild nausea but no vomiting or diarrhea. No fever. He is not vaccinated against COVID. He denies any shortness of breath. Prior similar symptoms: Yes Recent Illness/Hospitalization: No PFSH PFSH Medical History COVID-19 Home Medications buprenorphine-naloxone [Suboxone] 1 film BID 12/28/21 [History Last Taken Unknown] ondansetron 4 mg PO Q6H PRN #7 tab 02/13/22 [Rx Last Taken Unknown] Allergy/AdvReac Type Severity Reaction Status Date / Time No Known Allergies Allergy Verified 06/07/21 16:01 Social History Smoking Status: Current every day smoker tobacco type: cigarettes ROS ROS ED ROS Narrative Cough. Sore throat. Nausea. Review of Systems ROS Unobtainable: Denies due to encephalopathy Constitutional Constitutional ED: Denies fever(s) Eyes Eyes: Denies change in vision ENT ENT ED: Reports sore throat; Denies ear pain or rhinorrhea Cardiovascular Cardiovascular: Denies chest pain Respiratory/Chest Respiratory/Chest: Reports cough and sputum; Denies dyspnea Gastrointestinal Gastrointestinal: Reports nausea; Denies abdominal pain, diarrhea or vomiting Genitourinary Genitourinary ED: Denies dysuria Musculoskeletal Musculoskeletal: Denies myalgias Integumentary Denies rash Neurologic Neurologic: Denies headache(s) Psychiatric Psychiatric: Denies depression Endocrine Endocrinology: Denies polyuria Allergic/Immunologic Allergic/Immunologic ED: Denies urticaria EXAM Physical Exam Narrative Exam Narrative: 37-year-old male no acute distress vital signs stable afebrile. Does not look septic or toxic. Pulse ox 100% on room air no hypoxia. HEENT exam posterior pharynx erythematous. Minimal tonsillar exudate. Tonsils are nonenlarged. They are not touching. He has no trouble swallowing or breathing. No drooling or stridor. Neck nontender no lymphadenopathy. Lungs clear to auscultation bilaterally. No rales, rhonchi or wheezing. Heart regular rate and rhythm rate about 90. Abdomen soft nontender. Otherwise exam unremarkable. Const Vital Signs: 02/13/22 10:49 02/13/22 11:13 Temperature 97.9 F Temperature Source Temporal Pulse Rate 93 Respiratory Rate 16 Respiratory Effort Normal Non-Labored Blood Pressure 150/88 H Blood Pressure Mean 108 Pulse Ox 100 Oxygen Delivery Method Room Air Positive well nourished and well developed; Negative for obese, cachectic, contractures or unkempt General Appearance ED: well developed and NAD; Negative for unkempt, cachectic, contractures, cyanotic, diaphoretic or pallor Nutritional Appearance: Negative for cachectic or obese HEENT Reports moist mucous membranes HEENT Narrative: Posterior pharyngeal erythema. No tonsillar swelling. Minimal exudate. No trouble swallowing or breathing. No GALLEY COOK. Negative for trauma or tenderness Eyes PERRL and EOMs intact bilaterally General Eye ED: Negative for pale conjunctiva or scleral icterus Neck no lymphadenopathy, supple and no JVD General: Negative for tenderness Chest Wall inspection of chest normal and palpation of chest normal Resp normal respiratory effort and clear to auscultation bilaterally Effort and Inspection: Negative for pain with movement Auscultation: Negative for rales, rhonchi or wheezes Cardio regular rate, regular rhythm, S1 normal heart sound, S2 normal heart sound and no murmurs GI normal to inspection, nondistended, normoactive bowel sounds, non-tender, non-distended and no masses Inspection: Negative for abdominal distention Auscultation: normoactive bowel sounds Palpation: soft; Negative for tender, guarding or rebound tenderness present Back/Spine no CVA tenderness General Back: Negative for CVA tenderness Cervical Spine: Negative for cervical spine tenderness Thoracic Spine / Upper Back: Negative for thoracic spinal tenderness or paraspinal muscle tenderness Extremity normal to inspection General Extremety ED: Negative for edema or tenderness General Extremity: Negative for edema Neuro oriented x3 and CN's II-XII intact bilaterally Sensorium / Orientation: alert; Negative for orientation impaired, lethargic or stuporous Motor Exam: strength 5/5 throughout Psych mental status grossly normal Appearance: Negative for unkempt Attitude: No agitated Mood & Affect: Negative for depressed or tearful Skin no rashes or lesions noted and no wounds General Skin Exam: Negative for jaundice or pallor MDM MDM MDM Narrative Medical decision making narrative: 37-year-old male most likely viral syndrome. Obtaining a rapid strep and a Covid test. Being given p.o. Zofran for his nausea. Rapid strep and Covid test are both negative. Repeat exam patient is doing well at 1145. Be discharged home. Prescription for Zofran for nausea as needed. Treated as a viral syndrome. Discharge Plan Triage Chief Complaint: General Illness ED Provider: Hai Ann Dx/Rx/DC Orders Clinical Impression: Viral syndrome Instructions: ED Viral Syndrome (Adult) Prescriptions: New ondansetron 4 mg tablet,disintegrating 4 mg PO Q6H PRN (Reason: nausea and vomiting) Qty: 7 RF: 0 No Action buprenorphine-naloxone [Suboxone] 8-2 mg film 1 film BID RF: 0 Primary Care Provider: Dulce Maria May [employer] TENDER Referrals: Dulce Maria May [employer] OFF TENDER, [employer] TENDER-C [Primary Care Provider] - 1 Week if not improving Activity Restrictions/Additional Instructions: Plenty of fluids and rest. Tylenol and/or Motrin as needed for fever. Zofran as needed for nausea. Follow-up with your primary care provider if not improving. Disposition Disposition: Home, Self Care
[2022-02-13] MEDS: Ondansetron ODT 4 MG Tablet PO (11:06)
== END 2022-02-13 11:54 | disposition home or self-care (01) ==
PROVIDERS: Emergency Provider Emergency Medicine; PCP Registered Nurse; Visit Provider Emergency Medicine
DX: B34.9 Viral infection, unspecified (principal); Z20.822 Contact with and (suspected) exposure to COVID-19; R11.0 Nausea; R05.9 Cough, unspecified; J02.9 Acute pharyngitis, unspecified; F17.210 Nicotine dependence, cigarettes, uncomplicated
CPT/HCPCS: 87811; 87880; 99283

== ENCOUNTER 2022-05-22 05:28 | Emergency (ER) | payer MEDICAID, SELFPAY ==
[2022-05-22 05:31] VITALS: BP 167/95; PULSE 88; RESP 16; TEMP 37.2; O2SAT 97; BMI 23.7
--- NOTE | 2022-05-22 05:43 | EDS_ITS ---
HPI History of Present Illness Chief Complaint: Nausea/Vomiting/Diarrhea Informant: patient Narrative Narrative: Patient comes in with complaints that he has been having problems with nausea vomiting diarrhea sore throat nonproductive cough and some myalgias. He states his stomach started to get queasy either Saturday or . He had some vomiting and diarrhea then. By Saturday afternoon he was starting to feel better. He still has some mild nausea but he is able to drink and eat. His stools have gotten more normal. Those symptoms are much better but not completely gone. However, starting somewhere in started to get a sore throat and its not going away. Is not getting worse either. It does not prevent him from swallowing at all. He does not think he has had a fever at any time. He does have some mild myalgias. He was sleeping a lot the first few days but that has gotten better also. He was exposed to some children who had COVID about a week to week and a half ago. He has no vaccines. Nothing really makes symptoms better or worse. Patient is on sertraline, bupropion, and buprenorphine/naloxone. He has not run out of any of these. [facility] Medical History COVID-19 Home Medications buprenorphine 8 mg-naloxone 2 mg sublingual film (Suboxone) 1 film BID 12/28/21 [History Last Taken Unknown] bupropion HCl 150 mg 24 hr tablet, extended release 1 tab PO DAILY 05/22/22 [History Last Taken Unknown] ondansetron 4 mg disintegrating tablet 4 mg PO Q8H PRN nausea and vomiting #6 tabs 05/22/22 [Rx Last Taken Unknown] sertraline 25 mg tablet 1 tab PO DAILY 05/22/22 [History Last Taken Unknown] Allergy/AdvReac Type Severity Reaction Status Date / Time No Known Allergies Allergy Verified 05/22/22 05:29 Surgical History no surgical history Social History Smoking Status: Current every day smoker tobacco type: cigarettes ROS ROS ED Constitutional Constitutional ED: Denies fever(s) or subjective Eyes Eyes: Denies change in vision ENT ENT ED: Reports sore throat; Denies rhinorrhea Cardiovascular Cardiovascular: Denies chest pain or palpitations Respiratory/Chest Respiratory/Chest: Reports cough; Denies dyspnea or sputum Gastrointestinal Gastrointestinal: Reports diarrhea, nausea and vomiting; Denies abdominal pain, constipation or melena Genitourinary Genitourinary ED: Denies dysuria Musculoskeletal Musculoskeletal: Reports myalgias Integumentary Denies rash Neurologic Neurologic: Denies headache(s) Endocrine Endocrinology: Denies polydipsia or polyuria Hematologic/Lymphatic Hematologic/Lymphatic: Denies easy bleeding or easy bruising Allergic/Immunologic Allergic/Immunologic ED: Denies urticaria EXAM Physical Exam Const Vital Signs: 05/22/22 05:31 Temperature 98.9 F Temperature Source Oral Pulse Rate 88 Respiratory Rate 16 Blood Pressure 167/95 H Blood Pressure Mean 119 Pulse Ox 97 Oxygen Delivery Method Room Air Positive well nourished and well developed Constitutional Narrative: Patient looks nontoxic. He is actually drinking from a water jug now. General Appearance ED: well developed and NAD; Negative for pallor HEENT Reports moist mucous membranes; Denies dry mucous membranes Mouth ED: No dry mucous membranes Mouth: No dry mucous membranes Eyes General Eye ED: Negative for pale conjunctiva or scleral icterus Resp normal respiratory effort and clear to auscultation bilaterally Auscultation: Negative for rales, rhonchi or wheezes Cardio regular rate, regular rhythm and no murmurs GI normal to inspection, nondistended, normoactive bowel sounds GI Narrative: Abdomen is overall benign. Bowel sounds are normal. There is no tenderness at this time. Palpation: soft Back/Spine no CVA tenderness Extremity normal to inspection General Extremety ED: Negative for tenderness Neuro Sensorium / Orientation: alert Psych mental status grossly normal Skin no rashes or lesions noted General Skin Exam: Negative for jaundice or pallor MDM MDM MDM Narrative Medical decision making narrative: Patient's COVID and rapid strep are negative. His symptoms are consistent with a virus. He needed a COVID test for a class that he is taking. Will I will write him some Zofran for the nausea. If he is not improving in a few days he should follow-up. If he develops trouble breathing, high fevers or other concerning symptoms he should return. Discharge Plan Triage Chief Complaint: Nausea/Vomiting/Diarrhea ED Provider: Harrison Young Dx/Rx/DC Orders Clinical Impression: Acute viral syndrome, Pharyngitis, Nausea Instructions: ED URI, Viral, No Abx (Adult) Prescriptions: New ondansetron 4 mg tablet,disintegrating 4 mg PO Q8H PRN (Reason: nausea and vomiting) Qty: 6 0RF No Action buprenorphine-naloxone [Suboxone] 8-2 mg film 1 film BID Label Comments: Place 1 film under tongue twice a day F11.20 sertraline 25 mg tablet 1 tab PO DAILY Label Comments: Take 1 tablet by mouth once a day bupropion HCl 150 mg tablet extended release 24 hr 1 tab PO DAILY Label Comments: Take 1 tablet by mouth every morning Primary Care Provider: Dulce Maria May NP Referrals: Dulce Maria May NP, ELECTRONEURODIAGNOSTIC TECHNOLOGIST-C [Primary Care Provider] - 3-5 Days if not improving Disposition Disposition: Home, Self Care
[2022-05-22] MEDS: Ondansetron ODT 4 MG Tablet PO (05:49)
[2022-05-22 06:30] VITALS: BP 128/71; PULSE 75; RESP 16; O2SAT 98
== END 2022-05-22 06:30 | disposition home or self-care (01) ==
PROVIDERS: Emergency Provider Emergency Medicine; PCP Registered Nurse; Visit Provider Emergency Medicine
DX: B34.9 Viral infection, unspecified (principal); R11.2 Nausea with vomiting, unspecified; J02.9 Acute pharyngitis, unspecified; Z20.822 Contact with and (suspected) exposure to COVID-19; R19.7 Diarrhea, unspecified; M79.10 Myalgia, unspecified site; Z79.899 Other long term (current) drug therapy; F17.210 Nicotine dependence, cigarettes, uncomplicated
CPT/HCPCS: 87811; 87880; 99283

== ENCOUNTER 2022-06-22 22:45 | Emergency (ER) | payer MEDICAID, SELFPAY ==
[2022-06-22 22:45] VITALS: BP 140/85; PULSE 73; RESP 15; TEMP 35.9; O2SAT 97; BMI 23.9
--- NOTE | 2022-06-22 23:34 | EX.ED.DYSGE1 ---
HPI History of Present Illness Chief Complaint: Shortness of Breath Narrative Narrative: Patient is a 37-year-old male with past medical history of opioid abuse who is currently 2 months sober and manages his symptoms on Suboxone. He states that he has had essentially 1 day of congestion drainage and cough with mild shortness of breath sensation as well as 4 episodes of nausea vomiting and diarrhea today. He denies any known sick contacts but is unsure if he has developed an infection and is also worried about dehydration based on the symptoms and therefore comes in for evaluation. [facility] Medical History (Updated 06/23/22 @ 01:[address] Florencio Olsen, DO) COVID-19 Migraines Smoker Substance abuse Home Medications buprenorphine 8 mg-naloxone 2 mg sublingual film (Suboxone) 1 film BID 12/28/21 [History Last Taken Unknown] bupropion HCl 150 mg 24 hr tablet, extended release 1 tab PO DAILY 05/22/22 [History Last Taken Unknown] sertraline 25 mg tablet 1 tab PO DAILY 05/22/22 [History Last Taken Unknown] azelastine 137 mcg (0.1 %) nasal spray aerosol 2 spray intranasal BID #30 mL 06/23/22 [Rx Last Taken Unknown] ondansetron 4 mg disintegrating tablet 4 mg PO TID PRN nausea and vomiting #21 tabs 06/23/22 [Rx Last Taken Unknown] prednisone 20 mg tablet 40 mg PO DAILY 5 days #10 tabs 06/23/22 [Rx Last Taken Unknown] Allergy/AdvReac Type Severity Reaction Status Date / Time No Known Allergies Allergy Verified 06/22/22 22:45 Surgical History (Updated 06/23/22 @ 00:14 by Marina Frias) H/O chest tube placement Social History Smoking Status: Current every day smoker tobacco type: cigarettes ROS ROS ED Constitutional Constitutional ED: Denies chills or fever(s) ENT ENT ED: Reports rhinorrhea; Denies sore throat Cardiovascular Cardiovascular: Denies chest pain Respiratory/Chest Respiratory/Chest: Reports cough and dyspnea Gastrointestinal Gastrointestinal: Reports diarrhea, nausea and vomiting; Denies abdominal pain Genitourinary Genitourinary ED: Denies dysuria Musculoskeletal Musculoskeletal: Reports myalgias Integumentary Denies rash Neurologic Neurologic: Denies headache(s) Hematologic/Lymphatic Hematologic/Lymphatic: Denies easy bleeding or easy bruising EXAM Physical Exam Const Vital Signs: 06/22/22 22:45 06/23/22 00:16 06/23/22 00:45 Temperature 96.7 F L Temperature Source Temporal Pulse Rate 73 Respiratory Rate 15 16 Respiratory Effort Normal Respiratory Depth Normal Respiratory Pattern Normal Blood Pressure 140/85 H Blood Pressure Mean 103 Pulse Ox 97 97 Oxygen Delivery Method Room Air Room Air Room Air Positive well nourished and well developed General Appearance ED: well developed HEENT Reports moist mucous membranes HEENT Narrative: Nasal mucosa is hyperemic and boggy and there is cobblestoning the posterior pharynx consistent with sinus drainage but no airway edema or compromise Eyes PERRL and EOMs intact bilaterally Neck supple Neck Narrative: Positive anterior cervical lymphadenopathy noted Resp normal respiratory effort and clear to auscultation bilaterally Cardio regular rate and regular rhythm GI non-tender and non-distended GI Narrative: Abdomen is soft nontender nondistended with hyperactive bowel sounds no voluntary guarding or rigidity no pulsatile mass Auscultation: hyperactive bowel sounds Palpation: soft Extremity normal to inspection Extremity Narrative: No asymmetric edema no pitting edema negative Homans' sign bilaterally Neuro oriented x3 and CN's II-XII intact bilaterally Sensorium / Orientation: alert Psych mental status grossly normal Skin no rashes or lesions noted and skin turgor normal MDM MDM MDM Narrative Medical decision making narrative: Patient presented to the ER afebrile satting 97% on room air with no signs of respiratory distress. He reported nasal congestion with cough as well as upset stomach and there is concern for viral illness such as COVID or influenza. Therefore elected to perform viral swabs as well as basic laboratory studies. Viral swabs were negative and labs revealed no clinically significant finding. Patient was given IV fluids and Zofran and had no bouts of vomiting while in the ER. At the completion of his work-up his abdomen remains soft and nonsurgical and he was in no signs of respiratory distress. Therefore at this time as he does not have severe electrolyte derangement or signs of acute kidney injury or need for supplemental oxygen there is no need for further work-up and patient is otherwise safe for discharge Lab Data Attestation: I reviewed the patient's lab results. Labs: Laboratory Results - last 24 hr 06/22/22 06/22/22 23:35 23:35 WBC 7.3 RBC 4.66 Hgb 13.7 Hct 41.9 MCV 89.9 MCH 29.4 MCHC 32.7 RDW Std Deviation 42.1 RDW Coeff of Adriane 13.0 Plt Count 274 MPV 9.3 Immature Gran % (Auto) 0.300 Neut % (Auto) 56.9 Lymph % (Auto) 31.0 [place] % (Auto) 8.9 Eos % (Auto) 2.5 Baso % (Auto) 0.4 Absolute Neuts (auto) 4.2 Absolute Lymphs (auto) 2.26 Nucleated RBC % 0 Sodium 140 Potassium 3.9 Chloride 107 Carbon Dioxide 30.0 Anion Gap 3 L BUN 16 Creatinine 1.05 Estim Creat Clear Calc 104.58 Est GFR (MDRD) Af Amer 103 Est GFR (MDRD) Non-Af 85 BUN/Creatinine Ratio 15.2 Glucose 106 Calcium 9.1 Magnesium 2.1 Total Bilirubin 0.30 Direct Bilirubin 0.12 AST 23 ALT 24 Alkaline Phosphatase 82 Total Protein 7.3 Albumin 3.7 Globulin 3.6 Lipase 47 L Radiography Diagnostic Testing: Clinical Impression(s) from Imaging Studies Chest X-Ray 06/22/22 23:45 IMPRESSION: Normal x-ray examination of the chest. Electronically Signed: Rajiv Sinclair DO at 0:07 EDT , Chest x-ray as interpreted by the emergency medicine physician reveals no acute infiltrate pneumothorax or pleural effusion Discharge Plan Triage Chief Complaint: Shortness of Breath ED Provider: Florencio Olsen Dx/Rx/DC Orders Clinical Impression: Viral illness, Nausea vomiting and diarrhea Instructions: ED Viral Syndrome (Adult), ED Vomiting and Diarrhea ... Prescriptions: New ondansetron 4 mg tablet,disintegrating 4 mg PO TID PRN (Reason: nausea and vomiting) Qty: 21 0RF prednisone 20 mg tablet 40 mg PO DAILY 5 Days Qty: 10 0RF azelastine 137 mcg (0.1 %) aerosol,spray 2 spray intranasal BID Qty: 30 0RF Rx Instructions: administer into each nostril No Action buprenorphine-naloxone [Suboxone] 8-2 mg film 1 film BID Label Comments: Place 1 film under tongue twice a day F11.20 sertraline 25 mg tablet 1 tab PO DAILY Label Comments: Take 1 tablet by mouth once a day bupropion HCl 150 mg tablet extended release 24 hr 1 tab PO DAILY Label Comments: Take 1 tablet by mouth every morning Primary Care Provider: Dulce Maria May NP Referrals: Dulce Maria May NP, [employer] ATTENDANT-C [Primary Care Provider] - Activity Restrictions/Additional Instructions: Please return to the ER should you have any further concerns Disposition Disposition: Home, Self Care
[2022-06-22 23:42] LABS: Absolute Lymphocyte Count 2.26 X10^3/uL (0.83-4.51); Absolute Neutrophil Count 4.2 X10^3/uL (2.0-7.7); Basophil# 0.03 X10^3/uL; Basophil% 0.4 % (0-1); Eosinophil# 0.18 X10^3/uL; Eosinophils% 2.5 % (0-5); Hematocrit 41.9 % (40-54); Hemoglobin 13.7 g/dL (13.0-16.5); Lymphocyte # 2.26 X10^3/ul (0.83-4.51); Mean Corp Hgb Conc 32.7 g/dL (32-36); Mean Corpuscular Hgb 29.4 pg (27.0-32.0); Mean Corpuscular Volume 89.9 fL (80-94); Mean Platelet Vol. 9.3 fl (6.2-12.0); Monocyte# 0.65 X10^3/uL; Monocyte% 8.9 % (0-10); NRBC Flagged by Analyzer 0 % (0-5); Neutrophil # 4.16 X10^3/uL (2.7-7.7); Neutrophil % 56.9 % (47-70); Platelet Count 274 K/mm3 (150-450); RBC Distribution Width SD 42.1 fl (35.1-43.9); Red Blood Count 4.66 M/mm3 (4.6-6.2); White Blood Count 7.3 K/mm3 (4.4-11.0)
--- NOTE | 2022-06-22 23:45 | RAD_ITS ---
STUDY: X-RAY CHEST REASON FOR EXAM: Male, 37 years old. cough TECHNIQUE: Single AP portable view of the chest. COMPARISON: 08/18/2019 FINDINGS: The lungs are clear and expanded. There is no demonstrated pleural abnormality. Normal size heart. Normal mediastinum and laura. Normal visualized pulmonary arteries. Normal visualized aortic arch and descending thoracic aorta. Normal visualized thoracic spine. Normal visualized ribs, clavicles, and shoulders. There is no demonstrated abnormality of the visualized soft tissue structures of the upper abdomen. RAD/Chest 1 View (Portable) IMPRESSION: Normal x-ray examination of the chest. Electronically Signed: Rajiv Sinclair DO at 0:07 EDT ,
[2022-06-23] LABS: AST(SGOT) 23 U/L (15-37); Alanine Aminotransfer ALT/SGPT 24 U/L (16-61); Albumin, Serum 3.7 g/dL (3.2-5.0); Alkaline Phosphatase 82 U/L (45-117); Anion Gap 3 (5-15); BUN 16 mg/dL (7-18); BUN/Creat Ratio 15.2 RATIO (10-20); Bilirubin, Direct 0.12 mg/dL (0.00-0.30); Calcium,Total 9.1 mg/dL (8.5-10.1); Chloride 107 mmol/L (98-107); Creatinine, Serum 1.05 mg/dL (0.70-1.30); EST Glomerular Filtration Rate 85 mL/min (>60); Est Glom Filt Rate - Afr Amer 103 mL/min (>60); Estimated Creatinine Clearance 104.58 ml/min; Globulin 3.6 g/dL (2.2-4.2); Glucose 106 mg/dL (74-106); Lipase 47 U/L (73-393); Magnesium 2.1 mg/dL (1.6-2.6); Potassium 3.9 mmol/L (3.5-5.1); Protein, Total 7.3 g/dL (6.4-8.2); Sodium Level 140 mmol/L (136-145)
[2022-06-23] MEDS: Ondansetron 4 MG/2 ML Vial IV (00:09)
[2022-06-23] MEDS: 0.9% Normal Saline 1,000 ML 999 ML IV (00:09)
[2022-06-23 00:16] VITALS: O2SAT 97
[2022-06-23 00:45] VITALS: RESP 16; O2SAT 97
== END 2022-06-23 01:35 | disposition home or self-care (01) ==
PROVIDERS: Emergency Provider Emergency Medicine; PCP Registered Nurse; Visit Provider Emergency Medicine
DX: B34.9 Viral infection, unspecified (principal); R11.2 Nausea with vomiting, unspecified; Z20.822 Contact with and (suspected) exposure to COVID-19; R05.9 Cough, unspecified; R06.02 Shortness of breath; R19.7 Diarrhea, unspecified; F17.210 Nicotine dependence, cigarettes, uncomplicated; Z79.899 Other long term (current) drug therapy
CPT/HCPCS: 71045; 80048; 80076; 83690; 83735; 85025; 87428; 96361; 96374; 99283; J7030; A4216; J2405

== ENCOUNTER 2022-09-15 22:24 | Emergency (ER) | payer MEDICAID, SELFPAY ==
[2022-09-15 22:25] VITALS: BP 149/97; PULSE 75; RESP 18; TEMP 36.9; O2SAT 99; BMI 23.7
--- NOTE | 2022-09-15 22:31 | RAD_ITS ---
STUDY: X-RAY - RIGHT HAND REASON FOR EXAM: Male, 37 years old. hand trama TECHNIQUE: 3 view(s) of the hand. COMPARISON: 05/10/2020 FINDINGS: Normal radiocarpal articulation. Normal distal radioulnar joint. Normal visualized carpal bones. Normal carpal articulations Normal carpometacarpal articulation of the thumb. Normal second through fifth carpometacarpal joints. Normal metacarpi. Normal metacarpophalangeal joint of the thumb. Normal interphalangeal joint of the thumb. Normal proximal and distal phalanges of the thumb. Normal metacarpophalangeal joints of the second through fifth fingers. Normal proximal and distal interphalangeal joints of the second through fifth fingers. Normal phalanges of the second through fifth fingers. The soft tissue structures are unremarkable. RAD/Hand Min 3 Views IMPRESSION: Normal x-ray examination of the hand. Electronically Signed: Jules Boyd MD at 22:48 EDT ,
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
[2022-09-15] MEDS: Diphth,Pertuss(Acell),Tet Vac 0.5 ML Vial IM (23:04)
[2022-09-15] MEDS: Ibuprofen 400 MG Tablet 800 MG PO (23:07)
[2022-09-15 23:17] VITALS: RESP 16; TEMP 36.7; O2SAT 99
== END 2022-09-15 23:18 | disposition home or self-care (01) ==
LOC: ED 22:59
PROVIDERS: Emergency Provider Emergency Medicine; PCP Registered Nurse; Visit Provider Emergency Medicine
DX: S60.221A Contusion of right hand, initial encounter (principal); W22.09XA Striking against other stationary object, initial encounter; F17.210 Nicotine dependence, cigarettes, uncomplicated; Z23 Encounter for immunization; Z79.899 Other long term (current) drug therapy
CPT/HCPCS: 73130; 90471; 90715; 99283

== ENCOUNTER 2022-09-25 22:33 | Emergency (ER) | payer MEDICAID, SELFPAY ==
[2022-09-25 22:35] VITALS: BP 147/85; PULSE 106; RESP 15; TEMP 36.1; O2SAT 97; BMI 22.8
--- NOTE | 2022-09-25 23:07 | EX.ED.GUMALE ---
HPI History of Present Illness Chief Complaint: Complaint Narrative Narrative: 37-year-old male presenting with urethral discharge. He states at times it is yellow and other times it is white. He has burning at the tip of his penis. He does not have any testicular pain. He states his last sexual encounter was about a month ago. He did have unprotected sex. He is not concerned for STDs from her. He has been dating her on and off. He has not had any sex with anybody else. Patient denies history of STDs. Does not have any systemic signs or symptoms. Patient does state that he has dysuria as well. No history of UTIs. He states he was told by someone at [facility] that he might be diabetic. He does not have any polyuria, polyphagia, polydipsia PFSH PFSH Medical History COVID-19 Migraines Smoker Substance abuse Home Medications buprenorphine 8 mg-naloxone 2 mg sublingual film (Suboxone) 1 film BID 12/28/21 [History Last Taken Unknown] bupropion HCl 150 mg 24 hr tablet, extended release 150 mg PO DAILY 05/22/22 [History Last Taken Unknown] sertraline 25 mg tablet 50 mg PO DAILY 05/22/22 [History Last Taken Unknown] azelastine 137 mcg (0.1 %) nasal spray aerosol 2 spray intranasal BID #30 mL 06/23/22 [Rx Last Taken Unknown] doxycycline hyclate 100 mg capsule 100 mg PO DAILY #14 caps 09/25/22 [Rx Last Taken Unknown] Allergy/AdvReac Type Severity Reaction Status Date / Time No Known Allergies Allergy Verified 09/25/22 22:38 Surgical History H/O chest tube placement Social History (Updated 09/15/22 @ 22:[address] Jeyson Ford DO) Smoking Status: Current every day smoker tobacco type: cigarettes EXAM Physical Exam Const Vital Signs: 09/25/22 22:35 Temperature 97.0 F L Temperature Source Temporal Pulse Rate 106 H Respiratory Rate 15 Blood Pressure 147/85 H Blood Pressure Mean 105 Pulse Ox 97 Oxygen Delivery Method Room Air MDM MDM MDM Narrative Medical decision making narrative: Patient presenting with urethral drainage and dysuria which is most likely to be an STD. Unprotected sex about 4 weeks ago but denies any symptoms until the last several days. No systemic signs or symptoms. Patient was treated with Rocephin 500 IM and doxycycline with first dose in ER. He is given prescription for doxycycline. His urinalysis does show 500 leukocyte esterase and greater than 1000 white blood cells which would be consistent with this. His urine glucose is normal. I reviewed his prior lab work and there was no evidence of diabetes as well. Patient is stable for discharge at this time. Impression: 1. Urethritis Lab Data Attestation: I reviewed the patient's lab results. Labs: Laboratory Results - last 24 hr 09/25/22 23:00 Urine Color Yellow Urine Clarity Clear Urine pH 6.0 Ur Specific [place] 1.025 Urine Protein 30 H Urine Glucose (UA) Normal Urine Ketones 5 H Urine Occult Blood 25 H Urine Nitrite Negative Urine Bilirubin Negative Urine Urobilinogen 4 H Ur Leukocyte Esterase 500 H Urine RBC 0-5 SEEN Urine WBC >100 SEEN Ur Squamous Epith Cells 0 SEEN Urine Bacteria 2+ Urine Mucus 3+ Discharge Plan Triage Chief Complaint: Complaint ED Provider: Merritt Trejo Dx/Rx/DC Orders Instructions: ED STI Male Treated Prescriptions: New doxycycline hyclate 100 mg capsule 100 mg PO DAILY Qty: 14 0RF No Action buprenorphine-naloxone [Suboxone] 8-2 mg film 1 film BID Label Comments: Place 1 film under tongue twice a day F11.20 sertraline 25 mg tablet 50 mg PO DAILY Label Comments: Take 1 tablet by mouth once a day bupropion HCl 150 mg tablet extended release 24 hr 150 mg PO DAILY Label Comments: Take 1 tablet by mouth every morning azelastine 137 mcg (0.1 %) aerosol,spray 2 spray intranasal BID Qty: 30 0RF Rx Instructions: administer into each nostril Primary Care Provider: Care Physician,No Primary Referrals: [facility] [Outside] - 3-5 Days Disposition Disposition: Home, Self Care
[2022-09-25 23:11] LABS: Squamous Epithelial Cells - UA 0 SEEN /hpf (0-5)
[2022-09-25 23:15] LABS: Color, Urine Yellow (Yellow); Glucose, Dipstick Normal (Normal); Ketone-Dipstick 5 mg/dl (Negative); Leukocyte Esterase-Dipstick 500 /ul (Negative); Nitrite-Dipstick Negative (Negative); Occult Blood-Urine 25 /ul (Negative); Protein-Dipstick 30 mg/dl (Negative); Specific Gravity, Urine 1.025 (1.002-1.030); Urine Bilirubin Dipstick Negative (Negative); Urine Clarity Clear (Clear); Urine Urobilinogen 4 mg/dl (Normal)
[2022-09-25] MEDS: Doxycycline 100 MG CAPSULE PO (23:21)
[2022-09-25] MEDS: Ceftriaxone 500 MG Vial IM (23:22)
[2022-09-25 23:23] LABS: Bacteria 2+ /hpf (None Seen); Mucous, Urine 3+ /hpf (<or=2+); Red Blood Cells-Urine 0-5 SEEN /hpf (0-5); White Blood Cells >100 SEEN /hpf (0-5)
[2022-09-26 01:09] LABS: Chlamydia Trachomatis by PCR Negative (Negative); Probe Check PASS
[2022-09-26 01:10] LABS: Neisserai gonorrhoeae by PCR Positive (Negative)
--- NOTE | 2022-09-26 07:09 | ED.RN ---
lab called with positive gonorrhea results. patient called and made aware of results and treatment
== END 2022-09-26 00:33 | disposition home or self-care (01) ==
LOC: ED 23:09
PROVIDERS: Emergency Provider Student in an Organized Health Care Education/Training Program; Visit Provider Student in an Organized Health Care Education/Training Program
DX: N34.2 Other urethritis (principal); F17.210 Nicotine dependence, cigarettes, uncomplicated; Z79.899 Other long term (current) drug therapy
CPT/HCPCS: 81001; 87491; 87591; 96372; 99283